=== PATIENT | female | born 1975 | race Caucasian/White ===

== ENCOUNTER 2018-09-22 23:38 | Emergency (ER) | payer MEDICAID ==
[~2018-09-22] VITALS: Ht 160 cm; Wt 61.0 kg
[2018-09-23] MEDS ORDERED: LIDOCAINE HCL/PF 1% 10 MG/ML 5ML VIAL IJ ONE (00:45)
[2018-09-23] MEDS ORDERED: TETANUS, DIPHTHERIA, PERTUSSIS VAC/PF 0.5ML (>7YR OLD) IM ONE (00:45)
[2018-09-23] MEDS ORDERED: BACITRACIN ZINC OINT UDPKT TOP ONE (00:45)
[2018-09-23 01:56] VITALS: BP 121/64
== END 2018-09-23 02:30 | disposition home or self-care (01) ==
LOC: ER 23:38
DX: S01.01XA Laceration without foreign body of scalp, initial encounter (principal); F17.200 Nicotine dependence, unspecified, uncomplicated; W22.8XXA Striking against or struck by other objects, initial encounter; Y93.89 Activity, other specified; Y92.89 Other specified places as the place of occurrence of the external cause; Y99.8 Other external cause status; Z98.49 Cataract extraction status, unspecified eye
CPT/HCPCS: 12001; 90471; 90715; 99283; J3490; Z7610

== ENCOUNTER 2018-10-03 23:56 | Emergency (ER) | payer MEDICAID ==
[~2018-10-03] VITALS: Ht 160 cm; Wt 59.0 kg
[2018-10-04 04:15] VITALS: BP 117/70
== END 2018-10-04 04:20 | disposition home or self-care (01) ==
LOC: ER 23:56
DX: Z48.02 Encounter for removal of sutures (principal); F17.210 Nicotine dependence, cigarettes, uncomplicated
CPT/HCPCS: 99282; Z7610

== ENCOUNTER 2019-01-16 23:18 | Emergency (ER) | payer MEDICAID ==
[~2019-01-16] VITALS: Ht 165.1 cm; Wt 60.0 kg
[2019-01-17] MEDS ORDERED: IBUPROFEN 600MG TABLET PO STA (04:02)
[2019-01-17] MEDS ORDERED: BALANCED SALT IRRIG SOLN 15ML IR ONE (04:15)
[2019-01-17] MEDS ORDERED: FLUORESCEIN SODIUM 1MG/STRIP LEFTEYE ONE (04:15)
[2019-01-17 04:30] VITALS: BP 113/74
== END 2019-01-17 04:31 | disposition left against medical advice (07) ==
LOC: ER 23:18
DX: S05.92XA Unspecified injury of left eye and orbit, initial encounter (principal); X58.XXXA Exposure to other specified factors, initial encounter; Y93.9 Activity, unspecified; Y92.9 Unspecified place or not applicable; Z98.890 Other specified postprocedural states
CPT/HCPCS: 99281